=== PATIENT | male | born 1975 | race Caucasian/White ===

== ENCOUNTER 2022-11-13 21:17 | Outpatient (CLI) | payer MEDICAID, OTHER | END 2022-11-13 21:18 | disposition critical access hospital (66) | LOC: EMS 21:17 | DX: S80.01XA Contusion of right knee, initial encounter (principal); S50.11XA Contusion of right forearm, initial encounter; S51.812A Laceration without foreign body of left forearm, initial encounter; Y04.8XXA Assault by other bodily force, initial encounter; Y92.511 Restaurant or cafe as the place of occurrence of the external cause | CPT/HCPCS: A0425; A0429 ==